=== PATIENT | female | born 1935 | race Hispanic/Latino ===

== ENCOUNTER 2017-03-23 12:16 | Outpatient (CLI) | payer MEDICARE, OTHER ==
--- NOTE | 2017-03-23 15:54 | Mammography Report ---
BONE DEXA:03/23/17 12:16:00 CLINICAL: Postmenopausal. No comparison. TECHNIQUE: Two site bone DEXA performed on an Hologic scanner. FINDINGS: The average BMD of the lumbar spine L1-L4 is 1.663g/cm squared with a T-score of +5.6 and a Z-score of +8.4. The average BMD of the left hip is 1.209g/cm squared with a T-score of +2.2 and a Z-score of +4.4. IMPRESSION: WHO classification: Normal with average fracture risk based on both spine and left hip measurements. RECOMMENDATION: Clinical correlation and routine screening. DEFINITIONS: BMD = Bone Mineral Density T-score = BMD related to mean peak bone mass of young adult (mean expressed in Standard Deviation) Z-score = Age matched BMD expressed in SD World Health Organization (WHO) Diagnostic Criteria Normal T-score > -1 SD Osteopenia T-score between -1 and -2.4 SD Osteoporosis T-score -2.5 SD or below NOTE: BMD is not the only risk factor for fracture. One should also consider factors such as the patient's age, risk of falling, previous osteoporotic fracture, family history of osteoporotic fractures, current smoker, and low body weight. Z-scores are not calculated if >80 years of age.
--- NOTE | 2017-03-23 16:10 | Mammography Report ---
BILATERAL DIGITAL SCREENING MAMMOGRAM with CAD: 03/23/17 CLINICAL: Routine screening. COMPARISON:None available. However, a prior mammogram was apparently done at [facility]. FINDINGS: The breasts are heterogeneously dense, which may obscure small masses. Bilateral retroareolar asymmetries require comparison with prior mammogram or additional imaging. Bilateral benign calcifications. No architectural distortion or suspicious calcifications. IMPRESSION: Bilateral asymmetries requiring further evaluation. BI-RADS CATEGORY: 0 -- Additional Evaluation Required RECOMMENDATION: Comparison with a previous mammogram. We will attempt to obtain a prior mammogram. If we do not obtain a prior mammogram for comparison within 30 days, a revised report will be issued recommending a recall for additional imaging. Please be advised that the patient should not schedule an appointment for return until adequate time (at least 2 weeks) has passed for us to obtain the prior mammogram. ACR BI-RADS MAMMOGRAPHIC CODES: 0 = Needs additional imaging evaluation; 1 = Negative; 2 = Benign; 3 = Probably benign; 4 = Suspicious; 5 = Malignant; 6 = Known biopsy-proven malignancy COMMENT: 1. Dense breast tissue, i.e., adenosis, fibrocystic changes, etc., may obscure an underlying neoplasm. 2. Approximately 10% of cancers are not detected with mammography. 3. A negative mammography report should not delay biopsy if a clinically suspicious mass is present. COMMENT: Patient follow-up letters are generated via our [employer] application.
== END 2017-03-23 12:17 | disposition home or self-care (01) ==
LOC: SPVWC 12:16
PROVIDERS: ATTEND Family Medicine
DX: Z12.31 Encounter for screening mammogram for malignant neoplasm of breast (principal); Z78.0 Asymptomatic menopausal state
CPT/HCPCS: 77080; G0202; 77067

== ENCOUNTER 2017-07-05 08:27 | Outpatient (CLI) | payer MEDICARE, OTHER ==
--- NOTE | 2017-07-05 08:47 | XRay Report ---
XRAY LEFT KNEE 4 THREE VIEWS: 07/05/17 CLINICAL: Left knee pain. FINDINGS: Severe osteoarthritis of the medial joint space with loss of joint space and large osteophytes. Slight widening of the lateral joint space with smaller osteophytes. Patellofemoral joint osteoarthritis with large osteophytes. Large quadriceps and patellar enthesophytes.No joint effusion.Normal soft tissues. IMPRESSION: Osteoarthritis.
== END 2017-07-05 08:28 | disposition home or self-care (01) ==
LOC: SPVIMAG 08:27
PROVIDERS: ATTEND Orthopaedic Surgery Sports Medicine
DX: M17.12 Unilateral primary osteoarthritis, left knee (principal)

== ENCOUNTER 2017-09-01 09:48 | Outpatient (CLI) | payer MEDICARE, OTHER ==
--- NOTE | 2017-09-01 11:12 | Mammography Report ---
BILATERAL DIGITAL DIAGNOSTIC MAMMOGRAM and RIGHT BREAST ULTRASOUND: 09/01/17 09:48:00 CLINICAL: Recalled for bilateral asymmetries. COMPARISON:03/23/17 screening FINDINGS: Bilateral lateralmedial and spot compression views were performed. An oval circumscribed right upper outer density persists on spot views. Satisfactory effacement of left asymmetries on spot images. Ultrasound of the right breast was performed and demonstrated a benign cyst at 9 o'clock 5 cm from the nipple measuring 10 x 4 x 3 mm. It correlates with the mammographic density. No solid mass or shadowing. IMPRESSION: A benign 1 cm right breast cysts at 9 o'clock. Negative left breast. BI-RADS CATEGORY: 2 - - Benign RECOMMENDATION: Routine mammographic screening in one year. ACR BI-RADS MAMMOGRAPHIC CODES: 0 = Needs additional imaging evaluation; 1 = Negative; 2 = Benign; 3 = Probably benign; 4 = Suspicious; 5 = Malignant; 6 = Known biopsy-proven malignancy COMMENT: 1. Dense breast tissue, i.e., adenosis, fibrocystic changes, etc., may obscure an underlying neoplasm. 2. Approximately 10% of cancers are not detected with mammography. 3. A negative mammography report should not delay biopsy if a clinically suspicious mass is present. COMMENT: Patient follow-up letters are generated via our [employer] application.
== END 2017-09-01 09:49 | disposition home or self-care (01) ==
LOC: SPVWC 09:48
PROVIDERS: ATTEND Family Medicine
DX: N60.01 Solitary cyst of right breast (principal); R92.8 Other abnormal and inconclusive findings on diagnostic imaging of breast
CPT/HCPCS: 77066